=== PATIENT | female | born 1990 | race Caucasian/White ===

== ENCOUNTER 2025-05-11 14:17 | Outpatient (CLI) | payer OTHER, SELFPAY | END 2025-05-11 14:18 | disposition home or self-care (01) | LOC: FRMREF 14:20 | PROVIDERS: PCP Midwife; Visit Provider Midwife | DX: D56.3 Thalassemia minor (principal); O09.93 Supervision of high risk pregnancy, unspecified, third trimester; O99.13 Other diseases of the blood and blood-forming organs and certain disorders involving the immune mechanism complicating the puerperium | CPT/HCPCS: 82950; 83540; 83550; 86592; 86850 ==

== ENCOUNTER 2025-05-12 09:05 | Outpatient (CLI) | payer OTHER, SELFPAY ==
--- NOTE | 2025-05-12 09:15 | CRLHL7_ITS ---
For Patients: As a result of the Century Cures Act, medical imaging exams and procedure reports are released immediately into your electronic medical record. You may view this report before your referring provider. If you have questions, please contact your health care provider. OBSTETRICAL ULTRASOUND ??? FOLLOW-UP INDICATION: Thalassemia minor carrier. Follow-up growth. CLINICAL HISTORY: LMP: 10/25/2024 ESTEFANI by LMP: 08/01/2025 Gestational Age: 28 weeks 3 days COMPARISON: 12/28/2024 TECHNIQUE: Real-time delarosa-scale transabdominal imaging of the fetus was performed. FINDINGS: Fetus: Single Cervix: Not visualized positioning: Vertex Amniotic Fluid: 5.9 cm SDP Placenta technique: Transabdominal Placenta position: Anterior heart rate: 133 bpm BIOMETRY: BPD: 7.3 cm, 29 weeks 1 day, 63.8% HC: 26.9 cm, 29 weeks 3 days, 46.7% AC: 25.2 cm, 29 weeks 3 days, 72.6% FL: 5.5 cm, 29 weeks 1 day, 56.4% FL/AC Ratio: 21.9% HC/AC ratio: 1.1 EFW: 1371 grams; 3 lbs. 0 oz. age by this ultrasound: 29 weeks 2 days ESTEFANI by this ultrasound: 07/26/2025 Percentile by ESTEFANI: 70.9% IMPRESSION: 1. Sonographic gestational age is 29 weeks 2 days and sonographic due date is 07/26/2025. Sonographic age is 6 days ahead of the clinical age. 2. Estimated weight is 71st percentile. Abdominal circumference is 73rd percentile. RJ ANDRES M.D. Diagnostic Radiologist [email or web address] Transcribed: 10:[address]/Dictated by: Rj Andres MD @ 05/12/2025 9:55:00 AM (Electronically Signed)
== END 2025-05-12 09:06 | disposition home or self-care (01) ==
LOC: US 09:05
PROVIDERS: Visit Provider Midwife
DX: O09.93 Supervision of high risk pregnancy, unspecified, third trimester (principal); D56.3 Thalassemia minor; O36.63X0 Maternal care for excessive fetal growth, third trimester, not applicable or unspecified; Z3A.28 28 weeks gestation of pregnancy
CPT/HCPCS: 76816

== ENCOUNTER 2025-06-21 08:06 | Outpatient (CLI) | payer OTHER, SELFPAY ==
--- NOTE | 2025-06-21 08:15 | CRLHL7_ITS ---
For Patients: As a result of the Century Cures Act, medical imaging exams and procedure reports are released immediately into your electronic medical record. You may view this report before your referring provider. If you have questions, please contact your health care provider. OBSTETRICAL ULTRASOUND ??? FOLLOW-UP INDICATION: Thalassemia minor. Follow-up growth. CLINICAL HISTORY: LMP: 10/25/2024 ESTEFANI by LMP: 08/01/2025 Gestational Age: 34 weeks 1 day COMPARISON: 05/12/2025, 12/28/2024. TECHNIQUE: Real-time delarosa-scale transabdominal imaging of the fetus was performed. FINDINGS: Fetus: Single Cervix: Not visualized positioning: Vertex Amniotic Fluid: 5.3 cm SDP Placenta technique: Transabdominal Placenta position: Anterior heart rate: 137 bpm BIOMETRY: BPD: 8.4 cm, 33 weeks 6 days, 38.1% HC: 30.7 cm, 34 weeks 1 day, 16.3% AC: 33.1 cm, 37 weeks 0 days, 97% FL: 6.8 cm, 34 weeks 6 days, 61.1% FL/AC Ratio: 20.5% HC/AC ratio: 0.9 EFW: 2768 grams; 6 lbs. 2 oz. age by this ultrasound: 35 weeks 0 days ESTEFANI by this ultrasound: 07/26/2025 Percentile by ESTEFANI: 88.0% IMPRESSION: 1. Sonographic gestational age is 35 weeks 0 days and sonographic due date is 07/26/2025. Sonographic age is 6 days ahead of the clinical age. 2. Estimated weight is 88th percentile. Abdominal circumference is greater than 97th percentile. RJ ANDRES M.D. Diagnostic Radiologist [email or web address] Transcribed: 9:[address]/Dictated by: Rj Andres MD @ 06/21/2025 9:32:00 AM (Electronically Signed)
== END 2025-06-21 08:07 | disposition home or self-care (01) ==
LOC: US 08:06
PROVIDERS: Visit Provider Midwife
DX: D56.3 Thalassemia minor (principal); O09.93 Supervision of high risk pregnancy, unspecified, third trimester; O36.63X0 Maternal care for excessive fetal growth, third trimester, not applicable or unspecified; Z3A.35 35 weeks gestation of pregnancy; O99.013 Anemia complicating pregnancy, third trimester; Z3A.34 34 weeks gestation of pregnancy
CPT/HCPCS: 76816

== ENCOUNTER 2025-06-21 09:47 | Outpatient (CLI) | payer OTHER, SELFPAY | END 2025-06-21 11:35 | disposition home or self-care (01) | LOC: NFLDREF 06-23 13:44 | PROVIDERS: Referring Provider Midwife; Visit Provider Midwife | DX: O99.013 Anemia complicating pregnancy, third trimester (principal); Z3A.34 34 weeks gestation of pregnancy | CPT/HCPCS: 82728 ==

== ENCOUNTER 2025-07-06 09:41 | Outpatient (CLI) | payer OTHER, SELFPAY | END 2025-07-06 09:42 | disposition home or self-care (01) | LOC: NFLDREF 07-12 15:57 | PROVIDERS: Visit Provider Advanced Practice Midwife | DX: Z34.93 Encounter for supervision of normal pregnancy, unspecified, third trimester (principal) | CPT/HCPCS: 87081; 87653 ==